=== PATIENT | female | born 1955 | race Hispanic/Latino ===

== ENCOUNTER → 2018-11-19 | Outpatient (CLI) | payer OTHER | END | disposition home or self-care (01) | LOC: RAH 08:23 | PROVIDERS: ATTEND Internal Medicine | DX: I70.0 Atherosclerosis of aorta (principal); R10.12 Left upper quadrant pain | CPT/HCPCS: 76700 ==

== ENCOUNTER → 2019-03-04 | Outpatient (CLI) | payer OTHER | END | disposition home or self-care (01) | LOC: RAH 10:35 | PROVIDERS: ATTEND Internal Medicine | DX: Z12.31 Encounter for screening mammogram for malignant neoplasm of breast (principal); N64.89 Other specified disorders of breast | CPT/HCPCS: 77067 ==

== ENCOUNTER → 2019-03-17 | Outpatient (CLI) | payer OTHER | END | disposition home or self-care (01) | LOC: RAH 12:39 | PROVIDERS: ATTEND Internal Medicine | DX: R92.8 Other abnormal and inconclusive findings on diagnostic imaging of breast (principal) | CPT/HCPCS: 76641; 77065 ==

== ENCOUNTER → 2020-10-19 | Outpatient (CLI) | payer OTHER | END | disposition home or self-care (01) | LOC: RAH 15:28 | PROVIDERS: ATTEND Internal Medicine | DX: R92.8 Other abnormal and inconclusive findings on diagnostic imaging of breast (principal); N64.4 Mastodynia | CPT/HCPCS: 77066 ==

== ENCOUNTER → 2022-04-29 | Outpatient (CLI) | payer OTHER | END | disposition home or self-care (01) | LOC: RAH 10:01 | PROVIDERS: ATTEND Internal Medicine | DX: Z12.31 Encounter for screening mammogram for malignant neoplasm of breast (principal) | CPT/HCPCS: 77067 ==

== ENCOUNTER → 2022-07-17 | Outpatient (CLI) | payer OTHER | END | disposition home or self-care (01) | LOC: RAH 08:50 | PROVIDERS: ATTEND Internal Medicine | DX: Z13.6 Encounter for screening for cardiovascular disorders (principal) | CPT/HCPCS: 75571 ==

== ENCOUNTER → 2022-10-09 | Outpatient (CLI) | payer OTHER | END | disposition home or self-care (01) | LOC: EDSTATUS 09:00 → RAH 10:00 | PROVIDERS: ATTEND Internal Medicine | DX: M81.6 Localized osteoporosis [Lequesne] (principal) | CPT/HCPCS: 77080 ==

== ENCOUNTER 2022-12-06 08:11 | Emergency (ER) | payer OTHER ==
[~2022-12-06] VITALS: Ht 157.5 cm; Wt 67.6 kg
[2022-12-06] MEDS ORDERED: MELO10CA3 PO (09:21)
[2022-12-06 09:36] VITALS: BP 152/79; PULSE 84; RESP 16; O2SAT 97
== END 2022-12-06 09:39 | disposition home or self-care (01) ==
LOC: EDH 08:11
DX: G89.29 Other chronic pain (principal); M79.672 Pain in left foot; I10 Essential (primary) hypertension; Z90.710 Acquired absence of both cervix and uterus

== ENCOUNTER → 2022-12-23 | Outpatient (CLI) | payer OTHER ==
[~2022-12-23] MED LIST: MELO10CA3 PO
== END | disposition home or self-care (01) ==
LOC: RAH 07:59
PROVIDERS: ATTEND Internal Medicine
DX: M17.12 Unilateral primary osteoarthritis, left knee (principal); M25.462 Effusion, left knee; M25.762 Osteophyte, left knee
CPT/HCPCS: 73721

== ENCOUNTER 2023-05-06 08:40 | Observation (INO) | payer OTHER ==
[2023-05-05 13:18] LABS: ALBUMIN 3.6 g/dL (3.5-5.0)
[2023-05-05 13:37] VITALS: BP 138/74; PULSE 89; RESP 19
[2023-05-05 15:08] LABS: APPEARANCE,URINE CLEAR (CLEAR); BILIRUBIN,URINE NEGATIVE (NEGATIVE); COLOR,URINE YELLOW (YELLOW); GLUCOSE, URINE (UA) NEGATIVE (NEGATIVE); KETONES,URINE NEGATIVE (NEGATIVE); LEUKOCYTE ESTERASE ,URINE 250 Leu/uL (NEGATIVE); NITRATE,URINE NEGATIVE (NEGATIVE); OCCULT BLOOD,URINE NEGATIVE (NEGATIVE); PH,URINE 5.5 (5.0-8.0); PROTEIN,URINE NEGATIVE (NEGATIVE); UROBILINOGEN,URINE 0.2 mg/dL (0.2-1.0)
[2023-05-05 15:15] LABS: ADD UA MICROSCOPIC YES
[2023-05-05 15:16] LABS: BACTERIA,URINE RARE /HPF (None Seen); MUCUS,URINE RARE LPF (None Seen); SQUAMOUS EPITHELIAL CELL,UR RARE /HPF (0-2); WBC,URINE 0-1 /HPF (0-1)
[~2023-05-06] VITALS: Ht 154.9 cm; Wt 64.3 kg
[2023-05-06] VITALS (23 sets, daily range): BP systolic 129–157; BP diastolic 54–78; PULSE 66–104; RESP 15–20
[~2023-05-06 08:40] MED LIST changes: +ALPR1TAB7 PO; +CYAN50009 SL; +LISI1TAB51 PO; +MELA1TAB73 PO; -MELO10CA3 PO; +OMEG100033 PO; +ROPI0.2535 PO; +SERT-439 PO; +[UNRECOGNIZED DRUG - CODE] PO
[2023-05-06] MEDS: LACTATED RINGERS 1000ML 1,000 ML IV ONE (10:53)
[2023-05-06] MEDS ORDERED: LIDOCAINE PF 100MG/5ML (2%) SYRINGE 5ML ONE (12:54)
[2023-05-06] MEDS ORDERED: DEXAMETHASONE SOD PHOSPHATE 10MG/ML 1ML VIAL ONE ×2 (12:54→16:40)
[2023-05-06] MEDS ORDERED: SUCCINYLCHOLINE CHLORIDE 20 MG/ML 10 ML VIAL ONE (12:54)
[2023-05-06] MEDS ORDERED: ONDANSETRON 4MG INJ ONE (12:54)
[2023-05-06] MEDS ORDERED: PROPOFOL 10 MG/ML 20ML VIAL IV ONE (12:55)
[2023-05-06] MEDS ORDERED: FENTANYL CITRATE PF 50 MCG/1 ML 2ML VIAL ONE ×2 (12:55→18:51)
[2023-05-06] MEDS ORDERED: GLYCOPYRROLATE 0.2 MG/ML 5 ML VIAL ONE ×2 (12:55→18:30)
[2023-05-06] MEDS ORDERED: MIDAZOLAM HCL 1 MG/ML 2ML VIAL ONE (12:55)
[2023-05-06] MEDS ORDERED: NEOSTIGMINE METHYLSULFATE 1MG/ML IV ONE ×2 (12:55→18:30)
[2023-05-06] MEDS ORDERED: ROCURONIUM BROMIDE 10MG/1ML 5ML VL ONE (12:55)
[2023-05-06] MEDS ORDERED: ROPIVACAINE 0.5% 5MG/ML 30ML ONE (12:58)
[2023-05-06] MEDS: BACTRIM 800MG/160MG 10ML VIAL 320 MG in DEXTROSE 5%-WATER 500 ML IV ONE (13:02)
[2023-05-06] MEDS ORDERED: LIDOCAINE HCL 2% PF 20 ML JEL DISP.SYRIN MM ONE (16:36)
[2023-05-06] MEDS ORDERED: LIDOCAINE 2%-EPI 1:200,000 20 ML VIAL IJ ONE (16:38)
[2023-05-06] MEDS: CEFAZOLIN SODIUM 2 GM VIAL ONE (16:43)
[2023-05-06] MEDS: TRANEXAMIC ACID 1000MG/10ML ONE ×2 (17:00→18:15)
[2023-05-06] MEDS ORDERED: PHENYLEPHRINE HCL 10 MG/ML 1ML VIAL IV ONE (17:06)
[2023-05-06] MEDS: ROPIVACAINE 0.5% 5MG/ML 30ML ONE (17:10)
[2023-05-06] MEDS: KETOROLAC 30MG VIAL (30MG/ML) ONE (17:10)
[2023-05-06] MEDS ORDERED: POTASSIUM CHLORIDE 20MEQ/100ML 100 ML IV PRN (19:00)
[2023-05-06] MEDS ORDERED: CYCLOBENZAPRINE HCL 10 MG TABLET PO PRN (19:00)
[2023-05-06] MEDS ORDERED: POTASSIUM CHLORIDE 10% ELIXIR 20 MEQ/15 ML UDCUP PO PRN (19:00)
[2023-05-06] MEDS ORDERED: CALCIUM CARB 500MG PO PRN (19:00)
[2023-05-06] MEDS ORDERED: FERROUS FUMARATE 324 MG TABLET PO PRN (19:00)
[2023-05-06] MEDS ORDERED: KCL 20 MEQ ERTAB PO PRN (19:00)
[2023-05-06] MEDS: KETOROLAC 15MG/ML VIAL (15MG/ML) IV SCH (21:35)
[2023-05-06] MEDS: DOCUSATE SODIUM 100 MG CAP PO SCH (21:35)
[2023-05-06] MEDS: GABAPENTIN 100 MG CAPSULE PO SCH (21:36)
[2023-05-06] MEDS: 0.9%NACL 1000ML 1,000 ML IV SCH (23:00)
[2023-05-07] VITALS (7 sets, daily range): BP systolic 118–150; BP diastolic 60–76; PULSE 58–94; RESP 17–18; O2SAT 96–97
[2023-05-07] MEDS: CEFAZOLIN SODIUM 1 GM VIAL IVPB SCH ×2 (00:11→09:56)
[2023-05-07 04:03] LABS: HEMATOCRIT 34.2 % (36-48); MEAN CORPUSCULAR HGB CONC 34.2 g/dL (32.0-36.0); MEAN CORPUSCULAR VOLUME 90.5 fL (79-99); RED BLOOD CELL COUNT(AUTO) 3.78 MIL/uL (4.00-5.50); RED CELL DISTRIBUTION WIDTH 12.4 % (11.0-15.5); WHITE BLOOD COUNT (AUTO) 9.4 K/uL (4.8-10.8)
[2023-05-07 04:14] LABS: CREATININE 1.1 mg/dL (0.5-1.5); POTASSIUM 4.4 mmol/L (3.5-5.1)
[2023-05-07] MEDS: HYDROCODONE/ACETAMINOPHEN 5/325 MG TAB PO PRN (06:10)
[2023-05-07] MEDS: POLYETHYLENE GLYCOL 3350 17 GM POWD.PACK PO SCH (09:37)
[2023-05-07] MEDS: ASPIRIN 325MG EC TAB PO SCH (09:37)
[2023-05-07] MEDS: LEVOFLOXACIN 500 MG TABLET PO ONE (17:06)
[2023-05-07] MEDS: (Melatonin/Pyridoxine HCl (B6) (Melatonin 10 mg Tablet) PO SCH (21:00)
[2023-05-07] MEDS: HYDROCHLOROTHIAZIDE 25 MG TABLET PO SCH (21:00)
[2023-05-07] MEDS ORDERED: NON-FORMULARY MEDICATION 1 EACH (Lisinopril/Hydrochlorothiazide (Lisinopril-Hctz 20-12.5 m PO SCH (21:00)
[2023-05-07] MEDS: SULFAMETHOX-TMP DS 800/160 TAB PO SCH (21:00)
[2023-05-07] MEDS: ROPINIROLE HCL 0.25 MG TABLET PO SCH (21:01)
[2023-05-07] MEDS: LISINOPRIL 20 MG TABLET PO SCH (21:01)
[2023-05-07] MEDS: SERTRALINE HCL 50 MG TABLET PO SCH (21:01)
[2023-05-07] MEDS: KETOROLAC 15MG/ML VIAL (15MG/ML) IV PRN (21:02)
[2023-05-07] MEDS: TRAMADOL HCL 50 MG TABLET PO PRN (23:05)
[2023-05-08] VITALS: BP 115/49; PULSE 82; RESP 17
[2023-05-08] MEDS: ONDANSETRON 4MG INJ IVP PRN (03:51)
[2023-05-08 04:00] VITALS: BP 148/67; PULSE 87; RESP 18
[2023-05-08 08:00] VITALS: BP 158/68; PULSE 76; RESP 16
[2023-05-08] MEDS: CYANOCOBALAMIN 5000 MCG SL SCH (09:00)
[2023-05-08] MEDS: DHA PO SCH (09:00)
[2023-05-08] MEDS: FISH OIL PO SCH (09:00)
[2023-05-08] MEDS: EPA PO SCH (09:00)
[2023-05-08] MEDS: OMEGA PO SCH (09:00)
[2023-05-08] MEDS: LEVOFLOXACIN 500 MG TABLET PO SCH (09:17)
[2023-05-08] MEDS: AMLODIPINE 2.5 MG TAB PO SCH (09:18)
[2023-05-08 12:00] VITALS: BP 140/73; PULSE 81; RESP 16
[2023-05-08 12:07] VITALS: O2SAT 97
[2023-05-08] MEDS ORDERED: ASPI-891 PO (12:07)
[2023-05-08] MEDS ORDERED: CYCL-309 PO (12:07)
[2023-05-08] MEDS ORDERED: LEVO-70 PO (12:07)
[2023-05-08] MEDS ORDERED: DOCU-116 PO (12:07)
[2023-05-08] MEDS ORDERED: GABA100C PO (12:07)
[2023-05-08] MEDS ORDERED: HYDR-4060 PO (12:07)
[2023-05-08] MEDS ORDERED: SULF1TAB42 PO (12:07)
[2023-05-08 15:30] VITALS: BP 147/82; PULSE 97; RESP 16
[2023-05-09] MEDS ORDERED: BISACODYL 10 MG SUPP.RECT RC PRN (19:00)
== END 2023-05-08 16:00 ==
LOC: DAH 08:40 → 4CH 08:41
PROVIDERS: ADMIT Student in an Organized Health Care Education/Training Program; ATTEND Student in an Organized Health Care Education/Training Program
DX: M17.12 Unilateral primary osteoarthritis, left knee (principal); G89.18 Other acute postprocedural pain; D62 Acute posthemorrhagic anemia; N39.0 Urinary tract infection, site not specified; E78.5 Hyperlipidemia, unspecified; F32.A Depression, unspecified; Z79.82 Long term (current) use of aspirin; Z79.899 Other long term (current) drug therapy; Z90.710 Acquired absence of both cervix and uterus
CPT/HCPCS: 82040; 87088; 84134; 86140; 81001; 36415 ×2; 87641; 96365; 96366 ×2; 96375 ×2; 64447; 27447; 87077 ×2; 87186 ×2; 73560; 96376; 96368; 80048; 85027; 97161; 97116 ×4; 97530 ×7; G0378 ×41; A4215 ×2; J7120; J3010 ×2; J3490 ×7; J1100 ×2; J0330; J7060; J2001; J2250; J2704; J2405 ×2; J1885 ×5; J2710 ×2; J2795 ×2; J2371; J0690 ×3; C1713 ×2; G0168; C1776 ×2; A4649 ×3; A4930; A6254; A5120; A4223; A4213; A4222; A4221; A4663

== ENCOUNTER → 2023-06-10 | Outpatient (CLI) | payer OTHER ==
[~2023-06-10] MED LIST changes: -ALPR1TAB7 PO; +ASPI-891 PO; +CYCL-309 PO; +DOCU-116 PO; +GABA100C PO; +HYDR-4060 PO; +LEVO-70 PO; +SULF1TAB42 PO
== END | disposition home or self-care (01) ==
LOC: RAH 12:13
PROVIDERS: ATTEND Internal Medicine
DX: Z12.31 Encounter for screening mammogram for malignant neoplasm of breast (principal)
CPT/HCPCS: 77067